=== PATIENT | male | born 1935 | race Caucasian/White ===

== ENCOUNTER 2021-10-23 14:51 | Inpatient (IN) | payer OTHER, BC ==
[~2021-10-23] VITALS: Ht 182.9 cm; Wt 89.4 kg
[2021-10-23] MEDS ORDERED: BAYER THERAPY325 MG PO (15:46)
[2021-10-23] MEDS ORDERED: VITAMIN B-12500 MC3 SL (15:47)
[2021-10-23] MEDS ORDERED: DILTIAZEM ER180 M3 PO (15:47)
[2021-10-23] MEDS ORDERED: UROXATRAL10 MG PO (15:47)
== END 2021-11-16 20:38 | DRG 521 ==
LOC: ER 14:51 → SURH 10-24 12:53 → O/R 10-31 12:07 → SURH 10-31 12:11 → ICU 10-31 21:00 → SURG 11-07 13:51 → SURH 11-07 14:25
PROVIDERS: ADMIT Orthopaedic Surgery; ATTEND Orthopaedic Surgery
PROC: 0SR90JZ Replacement of Right Hip Joint with Synthetic Substitute, Open Approach (ICD-10-PCS; principal; 2021-10-25 09:45)
PROC: 30233N1 Transfusion of Nonautologous Red Blood Cells into Peripheral Vein, Percutaneous Approach (ICD-10-PCS; 2021-10-27)
PROC: 5A0945A Assistance with Respiratory Ventilation, 24-96 Consecutive Hours, High Flow/Velocity Cannula (ICD-10-PCS; 2021-10-31)
PROC: 02HV33Z Insertion of Infusion Device into Superior Vena Cava, Percutaneous Approach (ICD-10-PCS; 2021-11-01)
PROC: 4A12X4Z Monitoring of Cardiac Electrical Activity, External Approach (ICD-10-PCS; 2021-11-07)
DX: S72.041A Displaced fracture of base of neck of right femur, initial encounter for closed fracture (principal); B37.7 Candidal sepsis; R65.20 Severe sepsis without septic shock; T81.44XA Sepsis following a procedure, initial encounter; N17.8 Other acute kidney failure; N13.39 Other hydronephrosis; J90 Pleural effusion, not elsewhere classified; D62 Acute posthemorrhagic anemia; G93.49 Other encephalopathy; F05 Delirium due to known physiological condition; E87.0 Hyperosmolality and hypernatremia; B49 Unspecified mycosis; E87.6 Hypokalemia; I48.91 Unspecified atrial fibrillation; D72.823 Leukemoid reaction; R09.02 Hypoxemia; M16.11 Unilateral primary osteoarthritis, right hip; M25.751 Osteophyte, right hip; I10 Essential (primary) hypertension; N40.0 Benign prostatic hyperplasia without lower urinary tract symptoms